=== PATIENT | female | born 1995 | race Caucasian/White ===

== ENCOUNTER → 2017-08-01 | Outpatient (CLI) | payer BC | END | disposition home or self-care (01) | LOC: LABWHC1 09:32 | PROVIDERS: ATTEND Otolaryngology | DX: J30.89 Other allergic rhinitis (principal) | CPT/HCPCS: 36415 ==

== ENCOUNTER → 2017-12-11 | Outpatient (CLI) | payer BC ==
--- NOTE | 2017-12-11 10:39 | US ---
EXAMINATION TYPE: US Transvaginal DATE OF EXAM: 12/11/2017 COMPARISON: NONE CLINICAL HISTORY: R10.9 Abdominal pain. Patient complains of LLQ pain, Nausea/ vomiting, and dizziness x 1 day TECHNIQUE: Transvaginal (TV). Transabdominal sonographic images of the pelvis were attempted. Patient could not fill bladder appropriately because she had nausea/vomiting. After giving her the option to fill bladder or do transvaginal exam, patient chose TV. Transvaginal sonographic images were medically necessary to better assess the following anatomy: Date of LMP: 11/24/17 EXAM MEASUREMENTS: Uterus: 7.5 x 3.5 2.5 cm Endometrial Stripe: 0.3 cm Right Ovary: 2.4 x 2.2 x 1.5 cm Left Ovary: 2.6 x 1.4 x 1.3 cm 1. Uterus: Anteverted 2. Endometrium: wnl 3. Right Ovary: wnl 4. Left Ovary: wnl, multiple follicles noted. Spectral, color and waveform doppler imaging shows good arterial and venous flow within the ovaries; 5. Bilateral Adnexa: wnl 6. Posterior cul-de-sac: very small amount of fluid noted. Hold & Call results given to JARETT Miller at time of exam. Heterogeneous anteverted uterus is seen. Tiny amount of free fluid is seen in pelvic cul-de-sac. Endometrial stripe is felt within normal limits. Both ovaries are seen with scattered peripheral follicles. No suspicious adnexal mass is present. IMPRESSION: No suspicious finding is seen to account for patient's symptoms. MTDD
[2017-12-11 10:50] LABS: Basophils % (A) 0 %; Eosinophils # (A) 0.2 k/uL (0-0.7); Eosinophils % (A) 2 %; HCT 39.5 % (34.0-46.0); Lymphocytes # (A) 0.7 k/uL (1.0-4.8); Lymphocytes % (A) 6 %; MCH 28.8 pg (25.0-35.0); MCV 87.5 fL (80.0-100.0); Mean Platelet Volume 9.4; Monocytes # (A) 0.5 k/uL (0-1.0); Monocytes % (A) 5 %; Neutrophils # (A) 10.2 k/uL (1.3-7.7); Neutrophils % (A) 87 %; Platelet Count 181 k/uL (150-450); RBC 4.51 m/uL (3.80-5.40); RDW 12.2 % (11.5-15.5); WBC 11.7 k/uL (3.8-10.6)
[2017-12-11 11:12] LABS: ALT 14 U/L (9-52); AST 20 U/L (14-36); Albumin 4.5 g/dL (3.5-5.0); Alkaline Phosphatase 53 U/L (38-126); Anion Gap 17 mmol/L; Blood Urea Nitrogen 15 mg/dL (7-17); Calcium 9.6 mg/dL (8.4-10.2); Carbon Dioxide 23 mmol/L (22-30); Chloride 102 mmol/L (98-107); Glucose 91 mg/dL (74-99); Potassium 4.4 mmol/L (3.5-5.1); Sodium 142 mmol/L (137-145); Total Bilirubin 0.5 mg/dL (0.2-1.3); Total Protein 7.3 g/dL (6.3-8.2)
[2017-12-11 11:29] LABS: T4, Free (Free Thyroxine) 0.95 ng/dL (0.78-2.19)
[2017-12-11 11:56] LABS: Erythrocyte Sedimentation Rate 7 mm/hr (0-20)
[2017-12-11 17:06] LABS: Iron Saturation 17.5 (12.00-45.00)
== END | disposition home or self-care (01) ==
LOC: RADUSWWP 09:31
PROVIDERS: ATTEND Family Medicine
DX: R10.9 Unspecified abdominal pain (principal); R55 Syncope and collapse
CPT/HCPCS: 36415; 76830; 76856; 80053; 83540; 83550; 84439; 84443; 85025; 85652

== ENCOUNTER → 2018-12-06 | Outpatient (CLI) | payer BC ==
[2018-12-06 16:23] LABS: HCT 37.8 % (34.0-46.0); HGB 12.3 gm/dL (11.4-16.0); MCH 28.4 pg (25.0-35.0); MCHC 32.6 g/dL (31.0-37.0); MCV 87.2 fL (80.0-100.0); Mean Platelet Volume 7.9; Platelet Count 261 k/uL (150-450); RBC 4.34 m/uL (3.80-5.40); RDW 13.1 % (11.5-15.5); WBC 6.9 k/uL (3.8-10.6)
[2018-12-06 23:09] LABS: Albumin 4.3 g/dL (3.80-4.90); Albumin/Globulin Ratio 2.15 (1.60-3.17); Anion Gap 6.4 mmol/L (4.00-12.00); Calcium 9.1 mg/dL (8.7-10.3); Carbon Dioxide 26.6 mmol/L (21.6-31.8); Potassium 4.2 mmol/L (3.5-5.5); Total Bilirubin 0.2 mg/dL (0.3-1.2); Total Protein 6.3 g/dL (6.2-8.2)
[2018-12-06 23:19] LABS: T4, Free (Free Thyroxine) 0.9 ng/dL (0.80-1.80)
== END | disposition home or self-care (01) ==
LOC: LABWHC1 15:37
PROVIDERS: ATTEND Internal Medicine Cardiovascular Disease
DX: R00.0 Tachycardia, unspecified (principal)
CPT/HCPCS: 36415; 80053; 84439; 84443; 85027

== ENCOUNTER → 2020-02-03 | Outpatient (CLI) | payer BC | END | disposition home or self-care (01) | LOC: LABWHC1 10:50 | PROVIDERS: ATTEND Otolaryngology | DX: J30.89 Other allergic rhinitis (principal) | CPT/HCPCS: 36415 ==

== ENCOUNTER → 2021-09-15 | Outpatient (CLI) | payer BC ==
--- NOTE | 2021-09-15 16:16 | CT ---
EXAMINATION TYPE: CT soft tissue neck w con DATE OF EXAM: 09/15/2021 COMPARISON: None HISTORY: 25-year-old female R22.1, lump to right side of neck TECHNIQUE: Contiguous axial scanning of the soft tissues of the neck performed with IV Contrast, sarah ent injected with 100 mL of Isovue 300. Coronal/sagittal reconstructions performed. CT DLP: 408.2 mGycm Automated exposure control for dose reduction was used. FINDINGS: The thyroid and submandibular glands are satisfactory. Mildly atrophic bilateral parotid glands. Visualized intracranial structures, orbits and globes, paranasal sinuses, and mastoid air cells appea r clear. Nasopharynx appears clear. Mild bilateral palatine tonsillar hypertrophy. Mild lingual tonsillar hypertrophy, particularly on the left extending into the vallecular space. Epiglottis and prevertebral soft tissues are satisfactory. Glottic and subglottic struck as well as the tracheal column and visualized upper lungs are clear. Variant direct takeoff of the left vertebral artery directly from the aortic arch. A palpable marker placed along the right anterior upper neck. Directly underlying the palpable marker is the sternocleidomastoid muscle and the external jugular vein coursing over the muscle. No underly ing lymphadenopathy or suspicious masses identified. IMPRESSION: 1. Unremarkable marker placed along the right anterior upper neck. The sternocleidomastoid muscle und erlies the palpable marker with the external jugular vein coursing over the muscle. No suspicious mas s or lymphadenopathy here or elsewhere in the neck. 2. The area can be followed clinically. If any enlarging palpable abnormality, targeted ultrasound ca n be performed.
== END | disposition home or self-care (01) ==
LOC: RADCTMAIN 15:28
PROVIDERS: ATTEND Otolaryngology
DX: R22.1 Localized swelling, mass and lump, neck (principal)
CPT/HCPCS: 70491; Q9967

== ENCOUNTER 2022-01-26 22:22 | Emergency (ER) | payer BC ==
[2022-01-27 00:33] VITALS: BP 114/80; PULSE 90; RESP 18; TEMP 98.5
--- NOTE | 2022-01-27 01:44 | ED ---
Abdominal Pain HPI - General Chief Complaint: Abdominal Pain Stated Complaint: right side pain, 14 wks preg Time Seen by Provider: 01/27/22 01:43 Source: patient, RN notes reviewed, old records reviewed Mode of arrival: ambulatory - History of Present Illness Initial Comments: This is a 26-year-old female presented today for evaluation of abdominal pain patient wishes about 12-14 weeks . No nausea no vomiting no fevers. No dysuria no bowel movement issues. Patient has no travel history or sick contacts takes no medications. MD Complaint: abdominal pain -: hour(s) Location: RUQ, RLQ Radiation: R flank Migration to: suprapubic Severity: moderate Severity scale (1-10): 4 Quality: fullness Consistency: constant Improves With: nothing Worsens With: nothing Associated Symptoms: nausea Treatments Prior to Arrival: other (none) Review of Systems ROS Statement: Those systems with pertinent positive or pertinent negative responses have been documented in the HPI. ROS Other: All systems not noted in ROS Statement are negative. Past Medical History Past Medical History: Asthma Additional Past Medical History / Comment(s): miscarigases 03/27 07/27, hx of tachycardia, History of Any Multi-Drug Resistant Organisms: None Reported Additional Past Surgical History / Comment(s): D&C, cyst removal L hand Lfoot, wisdom teeth Past Psychological History: No Psychological Hx Reported Smoking Status: Never smoker Past Alcohol Use History: Rare Past Drug Use History: None Reported General Exam General appearance: alert, in no apparent distress, anxious Head exam: Present: atraumatic, normocephalic, normal inspection Eye exam: Present: normal appearance, PERRL, EOMI. Absent: scleral icterus, conjunctival injection, periorbital swelling ENT exam: Present: normal exam, mucous membranes moist Neck exam: Present: normal inspection. Absent: tenderness, meningismus, lymphadenopathy Respiratory exam: Present: normal lung sounds bilaterally. Absent: respiratory distress, wheezes, rales, rhonchi, stridor Cardiovascular Exam: Present: regular rate, normal rhythm, normal heart sounds. Absent: systolic murmur, diastolic murmur, rubs, gallop, clicks GI/Abdominal exam: Present: soft, normal bowel sounds. Absent: distended, tenderness, guarding, rebound, rigid Extremities exam: Present: normal inspection, full ROM, normal capillary refill. Absent: tenderness, pedal edema, joint swelling, calf tenderness Back exam: Present: normal inspection Neurological exam: Present: alert, oriented X3, CN II-XII intact Psychiatric exam: Present: normal affect, normal mood Skin exam: Present: warm, dry, intact, normal color. Absent: rash Course Vital Signs 01/27/22 00:26 Temperature 98.5 F Pulse Rate 90 Respiratory 18 Rate Blood Pressure 114/80 O2 Sat by Pulse 98 Oximetry - Reevaluation(s) Reevaluation #1: 01/27/22 Medical record is reviewed Reevaluation #2: 01/27/22 Patient informed results and questions answered Reevaluation #3: 01/27/22 Patient is without significant complaint Medical Decision Making - Medical Decision Making 26 female to the emergency department for evaluation. Patient presents today for evaluation regards to abdominal pain and positive IUP here in the emergency for her. Patient can be discharged home - Lab Data Lab Results 01/27/22 Range/Units 02:25 Urine Color Yellow Urine Appearance Cloudy H (Clear) Urine pH 5.5 (5.0-8.0) Ur Specific [place] 1.029 (1.001-1.035) Urine Protein Trace H (Negative) Urine Glucose (UA) Negative (Negative) Urine Ketones Trace H (Negative) Urine Blood Negative (Negative) Urine Nitrite Negative (Negative) Urine Bilirubin Negative (Negative) Urine Urobilinogen <2.0 (<2.0) mg/dL Ur Leukocyte Esterase Small H (Negative) Urine RBC 1 (0-5) /hpf Urine WBC 6 H (0-5) /hpf Ur Squamous Epith Cells 27 H (0-4) /hpf Uric Acid Crystals Few H (None) /hpf Urine Bacteria Rare H (None) /hpf Urine Mucus Few H (None) /hpf - Radiology Data Radiology results: report reviewed (Ultrasound shows positive IUP), image reviewed Disposition Clinical Impression: Abdominal pain Disposition: HOME SELF-CARE Condition: Good Instructions (If sedation given, give patient instructions): Abdominal Pain in (ED) Is patient prescribed a controlled substance at d/c from ED?: No Referrals: Roly Jose MD [REFERRING] - 1-2 days Time of Disposition: 02:40
--- NOTE | 2022-01-27 02:27 | US ---
EXAMINATION TYPE: US OB >= 14 wk fetus DATE OF EXAM: 01/27/2022 COMPARISON: None CLINICAL HISTORY: Right flank pain TECHNIQUE: Transabdominal (TA) GESTATIONAL AGE / DATING Physician Established: (14 weeks/4 days) EDC: 07/24/22 Dates by First Scan: No previous this is first scan here Dates by Current Scan: (14 weeks/3 days) EDC: 07/25/22 SURVEY IUP: Single PLACENTA: Anterior PREVIA: No Previa CERVICAL LENGTH (transabdominal: norm > 3.0cm): 3.08 cm BIOMETRY PRESENTATION: Variable BPD: 2.51 cm 14 weeks / 3 days HC: 9.72 cm 14 weeks / 4 days AC: 8.21 cm 14 weeks / 4 days FL: 1.38 cm 14 weeks / 1 days ESTIMATED WEIGHT IN GRAMS: 95 grams ESTIMATED WEIGHT IN LBS/OZ: 0 lbs. 3 oz. WEIGHT PERCENTAGE BASED ON ESTABLISHED DATES: 21% HC/AC: 1.18 Normal FL/AC: 17% Normal HEART RATE: 161 bpm RHYTHM: Normal IMPRESSION: The ultrasound gestational age is 14 weeks and 3 days. No complicating process seen.
[2022-01-27 03:14] LABS: Appearance,Urine Cloudy (Clear); Bacteria,Urine Rare /hpf; Bilirubin,Urine Negative (Negative); Blood,Urine Negative (Negative); Color,Urine Yellow; Glucose,Urine (UA) Negative (Negative); Ketones,Urine Trace (Negative); Leukocyte Esterase,Urine Small (Negative); Mucus,Urine Few /hpf; Nitrite,Urine Negative (Negative); PH, Urine 5.5 (5.0-8.0); Protein,Urine Trace (Negative); RBC,Urine 1 /hpf (0-5); Specific Gravity,Urine 1.029 (1.001-1.035); Squamous Epithelial Cell,Urine 27 /hpf (0-4); Uric Acid Crystals,Urine Few /hpf; Urobilinogen,Urine <2.0 mg/dL (<2.0); WBC,Urine 6 /hpf (0-5)
== END 2022-01-27 03:16 | disposition home or self-care (01) ==
LOC: EC 22:22
DX: O99.611 Diseases of the digestive system complicating pregnancy, first trimester (principal); J45.909 Unspecified asthma, uncomplicated; Z3A.14 14 weeks gestation of pregnancy
CPT/HCPCS: 76805; 81001

== ENCOUNTER 2022-06-07 18:45 | Outpatient (CLI) | payer BC ==
[2022-06-07 19:46] VITALS: BP 123/81; PULSE 113; RESP 16; TEMP 98.3
--- NOTE | 2022-06-25 10:41 | P.MSEPDOC ---
Presenting Problems - Arrival Data Date of Arrival on Unit: 06/07/22 Time of Arrival on Unit: 18:45 Mode of Transport: Ambulatory - Complaint OB-Reason for Admission/Chief Complaint: Decreased Movement Medical History - Information : 3 Para: 0 - Gestational Age Gestational Age by PAMELA (wks/days): 33 Weeks and 2 Days Review of Systems - Review of Systems Constitutional: No problems Breast: No problems ENT: No problems Cardiovascular: No problems Respiratory: No problems Gastrointestinal: No problems Genitourinary: No problems Musculoskeletal: No problems Neurological: No problems Skin: No problems Vital Signs - Temperature Temperature: 98.3 F Temperature Source: Temporal Artery Scan - Pulse Pulse Oximetery Pulse Rate: 113 Pulse Assessment Method: Pulse Oximetry - Respirations Respiratory Rate: 16 Oxygen Delivery Method: Room Air O2 Sat by Pulse Oximetry: 96 - Blood Pressure Right Arm Blood Pressure: 123/81 Blood Pressure Mean: 95 Blood Pressure Source: Automatic Cuff Medical Screen Scoring - Assessment - Baby A Baseline FHR: 125 Heart Rate - NICHD Category: Category I (Normal) Maternal Triage Index - Stat/Priority 1 Stat Priority 1: No - Urgent/Priority 2 Urgent Priority 2: Yes Provider Notified: Baldo Ng Provider Notified Time: 19:21 Criteria Met for Priority 2: Patient presents to triage for decreased movement Disposition - Disposition OB Disposition: Discharge to home I agree with the RN Medical Screening Exam: Yes Physician's MSE Comment: I have neither seen nor examined the patient. Case reviewed; plan agreed upon as documented in EMR&OBIX.: Yes Diagnosis: RELATED CONDITIONS, UNSPECIFIED, THIRD TRIMESTER
== END 2022-06-07 19:47 | disposition home or self-care (01) ==
LOC: FBPOP 18:45
PROVIDERS: ATTEND Obstetrics & Gynecology
DX: O26.893 Other specified pregnancy related conditions, third trimester (principal); Z3A.33 33 weeks gestation of pregnancy; O36.8130 Decreased fetal movements, third trimester, not applicable or unspecified; Z91.041 Radiographic dye allergy status; Z91.013 Allergy to seafood
CPT/HCPCS: 59025; 99213

== ENCOUNTER 2022-06-12 21:11 | Emergency (ER) | payer BC ==
[2022-06-12 21:16] VITALS: TEMP 98.2
--- NOTE | 2022-06-12 21:47 | ED ---
Chest Pain HPI - General Chief Complaint: Chest Pain Stated Complaint: Chest pain-34 weeks preg Time Seen by Provider: 06/12/22 21:19 Source: patient, RN notes reviewed, old records reviewed Mode of arrival: wheelchair Limitations: no limitations - History of Present Illness Initial Comments: This is a 26-year-old female to the emergency department for evaluation. Patient presents is a 34 weeks' . Patient is having some chest pain some back pain and elevated heart rate some lightheadedness and episode of vomiting earlier today not consistently short of breath does suffer from asthma admits may be a difficult time taking a deep breath. Patient is without fever or known sick contacts. No significant medical history otherwise MD Complaint: chest pain -: days(s) Onset: during rest, during exertion Pain Location: substernal Pain Radiation: none Severity: moderate Severity scale (1-10): 4 Quality: tightness Consistency: constant Improves With: nothing Worsens With: nothing Anginal Symptoms: dyspnea Other Symptoms: palpitations Treatments Prior to Arrival: none - Related Data Allergies Allergy/AdvReac Type Severity Reaction Status Date / Time iodine Allergy Rash/Hives Verified 06/07/22 19:05 shellfish derived [Shellfish] Allergy Rash/Hives Verified 06/12/22 21:16 Review of Systems ROS Statement: Those systems with pertinent positive or pertinent negative responses have been documented in the HPI. ROS Other: All systems not noted in ROS Statement are negative. EKG Findings - EKG Comments: EKG Findings:: EKG interpreted by me sinus tachycardia 110 AL 126 QRS 73 QTC 377 Past Medical History Past Medical History: Asthma Additional Past Medical History / Comment(s): miscarigases 03/27 07/27, hx of tachycardia, History of Any Multi-Drug Resistant Organisms: None Reported Additional Past Surgical History / Comment(s): D&C, cyst removal L hand Lfoot, wisdom teeth Past Psychological History: No Psychological Hx Reported Smoking Status: Never smoker Past Alcohol Use History: None Reported Past Drug Use History: None Reported General Exam Limitations: no limitations General appearance: alert, in no apparent distress, anxious Head exam: Present: atraumatic, normocephalic, normal inspection Eye exam: Present: normal appearance, PERRL, EOMI. Absent: scleral icterus, conjunctival injection, periorbital swelling ENT exam: Present: normal exam, mucous membranes moist Neck exam: Present: normal inspection. Absent: tenderness, meningismus, lymphadenopathy Respiratory exam: Present: normal lung sounds bilaterally. Absent: respiratory distress, wheezes, rales, rhonchi, stridor Cardiovascular Exam: Present: normal rhythm, tachycardia, normal heart sounds. Absent: systolic murmur, diastolic murmur, rubs, gallop, clicks GI/Abdominal exam: Present: soft, normal bowel sounds. Absent: distended, tenderness, guarding, rebound, rigid Extremities exam: Present: normal inspection, full ROM, normal capillary refill. Absent: tenderness, pedal edema, joint swelling, calf tenderness Back exam: Present: normal inspection Neurological exam: Present: alert, oriented X3, CN II-XII intact Psychiatric exam: Present: normal affect, normal mood Skin exam: Present: warm, dry, intact, normal color. Absent: rash Course Vital Signs 06/12/22 06/12/22 06/12/22 21:13 23:20 23:25 Temperature 98.2 F Pulse Rate 126 H 101 H 108 H Respiratory 20 Rate Blood Pressure 112/70 O2 Sat by Pulse 97 Oximetry 06/12/22 23:49 Temperature Pulse Rate 116 H Respiratory 18 Rate Blood Pressure 110/79 O2 Sat by Pulse 99 Oximetry - Reevaluation(s) Reevaluation #1: 06/12/22 23:38 Medical records reviewed Reevaluation #2: 06/12/22 23:38 Patient feeling currently improved - Consultations Consultation #1: Did speak with patient's OB kind who will see patient on OB floor Chest Pain MDM - MDM 26 female to the emergency department for evaluation chest pain abdominal pain. He is negative x-ray, mild sludge on gallbladder ultrasound mild hydronephrosis right-sided. Patient has no other acute findings can be discharged home, d- dimer just referred third trimester is within normal limits Disposition Clinical Impression: Atypical chest pain, Chest pain, Abdominal pain Disposition: HOME SELF-CARE Instructions (If sedation given, give patient instructions): Abdominal Pain in (ED) Is patient prescribed a controlled substance at d/c from ED?: No Referrals: Marcel Tejeda MD [Medical Doctor] - 1-2 days Time of Disposition: 01:00
[2022-06-12] MEDS ORDERED: ACETAMINOPHEN IV (For NPO) 1,000 MG in EMPTY BAG 1 BAG IVPB STA (21:57)
[2022-06-12] MEDS ORDERED: SODIUM CHLORIDE 0.9% 500 ML 500 ML IV STA (21:57)
[2022-06-12] MEDS ORDERED: SODIUM CHLORIDE 0.9% 1,000 ML IV STA ×3 (21:57→23:02)
--- NOTE | 2022-06-12 22:26 | XR ---
EXAMINATION TYPE: XR chest 1V portable DATE OF EXAM: 06/12/2022 COMPARISON: NONE HISTORY: Chest pain TECHNIQUE: 2 views FINDINGS: Heart and mediastinum are normal. Lungs are clear. Diaphragm is normal. Bony thorax is inta ct. There are chest leads. IMPRESSION: Normal chest.
[2022-06-12 22:40] LABS: Basophils % (A) 0 %; Eosinophils # (A) 0.1 k/uL (0-0.7); Eosinophils % (A) 1 %; HCT 29.8 % (34.0-46.0); HGB 10.3 gm/dL (11.4-16.0); Lymphocytes # (A) 1.5 k/uL (1.0-4.8); Lymphocytes % (A) 13 %; MCHC 34.4 g/dL (31.0-37.0); MCV 84.1 fL (80.0-100.0); Mean Platelet Volume 10.9; Monocytes # (A) 0.7 k/uL (0-1.0); Monocytes % (A) 6 %; Neutrophils # (A) 9.2 k/uL (1.3-7.7); Neutrophils % (A) 79 %; Platelet Count 172 k/uL (150-450); RBC 3.55 m/uL (3.80-5.40); RDW 12.9 % (11.5-15.5); WBC 11.7 k/uL (3.8-10.6)
[2022-06-12 22:42] LABS: Appearance,Urine Clear (Clear); Bilirubin,Urine Negative (Negative); Blood,Urine Negative (Negative); Color,Urine Colorless; Glucose,Urine (UA) Negative (Negative); Ketones,Urine Negative (Negative); Leukocyte Esterase,Urine Negative (Negative); Nitrite,Urine Negative (Negative); Protein,Urine Negative (Negative); Specific Gravity,Urine 1.005 (1.001-1.035); Urobilinogen,Urine <2.0 mg/dL (<2.0)
[2022-06-12 22:49] LABS: INR 0.9 (<1.2); Partial Thromboplastin Time 22.3 sec (22.0-30.0)
[2022-06-12 22:50] LABS: ALT 10 U/L (4-34); AST 15 U/L (14-36); African American GFR (CKD) >90 (>60 ml/min/1.73 sqM); Albumin 3.5 g/dL (3.5-5.0); Alkaline Phosphatase 121 U/L (38-126); Anion Gap 7 mmol/L; Blood Urea Nitrogen 7 mg/dL (7-17); Calcium 8.7 mg/dL (8.4-10.2); Carbon Dioxide 21 mmol/L (22-30); Chloride 106 mmol/L (98-107); Glucose 90 mg/dL (74-99); Magnesium 1.8 mg/dL (1.6-2.3); Non-African American GFR(CKD) >90 (>60 ml/min/1.73 sqM); Phosphorus 4.1 mg/dL (2.5-4.5); Potassium 3.8 mmol/L (3.5-5.1); Sodium 134 mmol/L (137-145); Total Bilirubin 0.3 mg/dL (0.2-1.3); Total Protein 6.2 g/dL (6.3-8.2)
[2022-06-12] MEDS ORDERED: ALBUTEROL NEBULIZED 2.5 MG/3 ML INHALATION STA (23:02)
[2022-06-12 23:50] VITALS: BP 110/79; PULSE 116; RESP 18
[2022-06-12] MEDS ORDERED: diphenhydrAMINE 50 MG/ML 1 ML VIAL IVP STA (23:51)
--- NOTE | 2022-06-13 00:48 | US ---
EXAMINATION TYPE: US gallbladder DATE OF EXAM: 06/13/2022 COMPARISON: NONE CLINICAL HISTORY: pain. TECHNIQUE: Multiple sonographic images of the right upper quadrant are obtained. FINDINGS: EXAM MEASUREMENTS: Liver Length: 13.7 Gallbladder Wall: 0.3m CBD: 0.3 cm Right Kidney: 10.1 x 3.7 x 4.5cm [employer] AIDE NOTES: Extensive overlying bowel gas, technically difficult study. Pancreas: Obscured by bowel gas Liver: limited views, appears wnl as seen Gallbladder: sludge Evidence for sonographic Quiros's sign: No CBD: wnl Right Kidney: mild hydro IMPRESSION: There is echogenic bile. No gallstones. No dilated ducts. There is enlargement of the right renal pel vis. There is right-sided hydronephrosis but no renal atrophy.
== END 2022-06-13 01:57 | disposition home or self-care (01) ==
LOC: EC 21:11
DX: O26.893 Other specified pregnancy related conditions, third trimester (principal); R07.89 Other chest pain; R10.9 Unspecified abdominal pain; J45.909 Unspecified asthma, uncomplicated; Z3A.34 34 weeks gestation of pregnancy; Z91.041 Radiographic dye allergy status; Z91.013 Allergy to seafood
CPT/HCPCS: 99285; 96365 ×2; 96375 ×2; 96361 ×5; 99284; 36415; 94640; 93005; 85379; 80053; 83690; 83735; 84100; 84484; 85025; 85610; 85730; 81003; 71045; 76705; J1200; J0131

== ENCOUNTER 2022-06-13 01:36 | Outpatient (CLI) | payer BC ==
[2022-06-13 03:26] VITALS: BP 100/59; PULSE 99; RESP 18; TEMP 97.9
--- NOTE | 2022-06-14 08:17 | P.MSEPDOC ---
Presenting Problems - Arrival Data Date of Arrival on Unit: 06/13/22 Time of Arrival on Unit: 01:36 Mode of Transport: Wheelchair - Complaint OB-Reason for Admission/Chief Complaint: Pain Comment: Patient c/o back pain and pelvic pain, Seen in ER before L&D triage for shortness of breath and chest pain. PE ruled out, no acute processes seen on CXR. Patient deemed stable for transfer up to L&D for r/o labor and NST. Medical History - Information : 3 Para: 0 Term: 0 : 0 Abortions: Spontaneous or Elective: 2 Number of Living Children: 0 - Gestational Age Gestational Age by PAMELA (wks/days): 34 Weeks and 1 Days Review of Systems - Review of Systems Constitutional: No problems Breast: No problems ENT: No problems Cardiovascular: No problems Respiratory: No problems Gastrointestinal: No problems Genitourinary: No problems Musculoskeletal: No problems Neurological: No problems Skin: No problems Comment: Initial complaints of SOB and chest pain that brought her to be checked are no longer an issue when in triage. Vital Signs - Temperature Temperature: 97.9 F Temperature Source: Temporal Artery Scan - Pulse Pulse Oximetery Pulse Rate: 99 Pulse Assessment Method: Automatic Cuff - Respirations Respiratory Rate: 18 Oxygen Delivery Method: Room Air O2 Sat by Pulse Oximetry: 98 - Blood Pressure Right Arm Blood Pressure: 100/59 Blood Pressure Mean: 72 Blood Pressure Source: Automatic Cuff Medical Screen Scoring - Cervical Exam Dilation (cm): 0 Effacement (%): 50 Station: -2 Membranes: Intact - Uterine Contractions Intensity: Absent Resting: Soft to palpation - Assessment - Baby A Baseline FHR: 125 Heart Rate - NICHD Category: Category I (Normal) NST: Reactive Physician Notification - Physician Notified Physician Notified Date: 06/13/22 Physician Notified Time: 02:25 Physician: Marian Schmidt Order Received: Yes - Notification Comment Comment: Dr. Schmidt on unit. Discussed orders to begin NST and perform cervical exam. Call with results. Maternal Triage Index - Maternal Triage Index Presenting for scheduled procedure w/no complaint: No - Stat/Priority 1 Stat Priority 1: No - Urgent/Priority 2 Urgent Priority 2: No - Prompt/Priority 3 Prompt Priority 3: Yes Criteria Met for Priority 3: >34 weeks. Back and pelvic pain. - Non-Urgent/Priority 4 Non-Urgent Priority 4: No - Scheduled/Requesting Priority 5 Scheduled/Requesting Priority 5: No Disposition - Disposition OB Disposition: Discharge to home, Written follow up instructions reviewed Discharge Date: 06/13/22 Discharge Time: 03:08 I agree with the RN Medical Screening Exam: Yes Physician's MSE Comment: I have neither seen nor examined the patient. Case reviewed; plan agreed upon as documented in EMR&OBIX.: Yes Diagnosis: RELATED CONDITIONS, UNSPECIFIED, THIRD TRIMESTER
== END 2022-06-13 03:08 | disposition home or self-care (01) ==
LOC: FBPOP 01:36
PROVIDERS: ATTEND Obstetrics & Gynecology
DX: O26.93 Pregnancy related conditions, unspecified, third trimester (principal); Z91.048 Other nonmedicinal substance allergy status; Z91.013 Allergy to seafood; Z3A.34 34 weeks gestation of pregnancy
CPT/HCPCS: 59025; 99213

== ENCOUNTER 2022-07-18 17:06 | Outpatient (CLI) | payer BC ==
[2022-07-18 18:36] VITALS: BP 112/81; PULSE 121; RESP 16; TEMP 98.2
--- NOTE | 2022-08-28 10:09 | P.MSEPDOC ---
Presenting Problems - Arrival Data Date of Arrival on Unit: 07/18/22 Time of Arrival on Unit: 17:06 Mode of Transport: Ambulatory - Complaint OB-Reason for Admission/Chief Complaint: Rule Out PROM Medical History - Information : 3 Para: 0 Term: 0 : 0 Abortions: Spontaneous or Elective: 3 Number of Living Children: 0 - Gestational Age Gestational Age by PAMELA (wks/days): 39 Weeks and 1 Days Review of Systems - Review of Systems Constitutional: No problems Breast: No problems ENT: No problems Cardiovascular: No problems Respiratory: No problems Gastrointestinal: No problems Genitourinary: No problems Musculoskeletal: No problems Neurological: No problems Skin: No problems Vital Signs - Temperature Temperature: 98.2 F Temperature Source: Temporal Artery Scan - Pulse Pulse Oximetery Pulse Rate: 121 Pulse Assessment Method: Pulse Oximetry - Respirations Respiratory Rate: 16 Oxygen Delivery Method: Room Air O2 Sat by Pulse Oximetry: 97 - Blood Pressure Right Arm Blood Pressure: 112/81 Blood Pressure Mean: 91 Blood Pressure Source: Automatic Cuff Medical Screen Scoring - Assessment - Baby A Baseline FHR: 125 Heart Rate - NICHD Category: Category I (Normal) NST: Reactive Physician Notification - Physician Notified Physician Notified Date: 07/18/22 Physician Notified Time: 18:12 Physician: Marian Schmidt Order Received: No Maternal Triage Index - Non-Urgent/Priority 4 Non-Urgent Priority 4: Yes Criteria Met for Priority 4: complaints of gush of clear fluid Disposition - Disposition OB Disposition: Triage, Discharge to home, Written follow up instructions reviewed I agree with the RN Medical Screening Exam: Yes Physician's MSE Comment: I have neither seen nor examined the patient Case reviewed; plan agreed upon as documented in EMR&OBIX.: Yes Diagnosis: RELATED CONDITIONS, UNSPECIFIED, THIRD TRIMESTER
== END 2022-07-18 18:30 | disposition home or self-care (01) ==
LOC: FBPOP 17:06
PROVIDERS: ATTEND Obstetrics & Gynecology
DX: O26.93 Pregnancy related conditions, unspecified, third trimester (principal); Z3A.39 39 weeks gestation of pregnancy; Z91.041 Radiographic dye allergy status; Z91.013 Allergy to seafood; Z91.040 Latex allergy status
CPT/HCPCS: 59025; 84112; 99213

== ENCOUNTER 2022-07-22 05:55 | Inpatient (IN) | payer BC ==
[2022-07-22] MEDS: LACTATED RINGERS 1,000 ML IV SCH ×2 (06:22→11:57)
[2022-07-22 07:34] LABS: Basophils % (A) 0 %; Eosinophils # (A) 0.1 k/uL (0-0.7); Eosinophils % (A) 1 %; HCT 29.7 % (34.0-46.0); HGB 10.3 gm/dL (11.4-16.0); Lymphocytes # (A) 1.6 k/uL (1.0-4.8); Lymphocytes % (A) 15 %; MCH 28.7 pg (25.0-35.0); MCHC 34.7 g/dL (31.0-37.0); MCV 82.7 fL (80.0-100.0); Mean Platelet Volume 11.8; Monocytes # (A) 0.7 k/uL (0-1.0); Monocytes % (A) 6 %; Neutrophils # (A) 8.3 k/uL (1.3-7.7); Neutrophils % (A) 76 %; Platelet Count 184 k/uL (150-450); RBC 3.59 m/uL (3.80-5.40); RDW 13.4 % (11.5-15.5); WBC 10.8 k/uL (3.8-10.6)
[2022-07-22] MEDS ORDERED: LIDOCAINE 0.5% (PF) 5 MG/ML (50 ML SDV) SQ PRN (08:07)
[2022-07-22] MEDS ORDERED: TERBUTALINE 1 MG/ML VIAL SQ PRN (08:07)
[2022-07-22] MEDS ORDERED: BUTORPHANOL 1 MG/ML 1 ML VIAL IM PRN (08:10)
[2022-07-22] MEDS ORDERED: OXYTOCIN 30 UNITS/500 ML NS 30 UNIT in SALINE 1 500ML.BAG IV SCH ×2 (08:15→20:30)
--- NOTE | 2022-07-22 08:19 | P.HPOB ---
History of Present Illness H&P Date: 07/22/22 Chief Complaint: Elective induction of labor 26 y/o at 39 weeks, 5 with EDC of 07/24/2022 who presents for elective induction of labor. has been uncomplicated. Obstetric history is significant for 2 early SABs, both requiring D&C. Laboratory workup showed GBS negative, 1 hr GTT 73, RPR non-reactive, HBsAG negative, HIV non-reactive, rubella immune. Past Medical History Past Medical History: Asthma Additional Past Medical History / Comment(s): miscarrages 03/27 07/27, hx of tachycardia, History of Any Multi-Drug Resistant Organisms: None Reported Additional Past Surgical History / Comment(s): D&C, cyst removal L hand Lfoot, wisdom teeth Past Anesthesia/Blood Transfusion Reactions: No Reported Reaction Past Psychological History: No Psychological Hx Reported Smoking Status: Never smoker Past Alcohol Use History: None Reported Past Drug Use History: None Reported - Past Family History Father Family Medical History: Diabetes Mellitus, Hypertension Mother Family Medical History: Thyroid Disorder Medications and Allergies Home Medications Medication Instructions Recorded Confirmed Type Aspirin [[place]] 162 mg PO DAILY 06/13/22 07/22/22 History Cetirizine HCl [Zyrtec] 10 mg PO DAILY 06/13/22 07/22/22 History Folic Acid 1 mg PO DAILY 06/13/22 07/22/22 History Montelukast [Singulair] 10 mg PO DAILY 06/13/22 07/22/22 History Omeprazole [PriLOSEC] 10 mg PO DAILY 06/13/22 07/22/22 History Allergies Allergy/AdvReac Type Severity Reaction Status Date / Time iodine Allergy Rash/Hives Verified 07/22/22 07:27 shellfish derived [Shellfish] Allergy Rash/Hives Verified 07/22/22 07:27 latex AdvReac Rash/Hives Verified 07/22/22 07:28 Exam Vital Signs Temp Pulse Resp BP Pulse Ox 07/22/22 07:19 96.9 F L 114 H 17 114/74 96 Intake and Output 07/21/22 07/22/22 07/22/22 22:59 06:59 14:59 Other: Weight 87.997 kg Focused exam is performed. Healthy-appearing in no apparent distress. Cervical exam shows cervix is 1cm dilated, thick, and high. Cooks catheter balloon is inserted through the cervix with 60cc in each balloon. Patient tolerated the procedure well. Results Result Diagrams: 07/22/22 06:25 Abnormal Lab Results - Last 24 Hours (Table) 07/22/22 Range/Units 06:25 WBC 10.8 H (3.8-10.6) k/uL RBC 3.59 L (3.80-5.40) m/uL Hgb 10.3 L (11.4-16.0) gm/dL Hct 29.7 L (34.0-46.0) % Neutrophils # 8.3 H (1.3-7.7) k/uL Assessment and Plan Assessment: 26 y/o at 39w5d here for eIOL Plan: - cooks catheter placed at 800 with 60cc in each balloon. Begin low-dose oxytocin with maximum of 6 until cooks catheter is removed. IV stadol prn while cooks catheter is in place. Plan to remove catheter in 6-12 hours. NPO, mIVF. Continunous EFM. Time with Patient: Greater than 30
[2022-07-22] MEDS: BUTORPHANOL 1 MG/ML 1 ML VIAL IV PRN ×2 (17:32→18:10)
[2022-07-22] MEDS ORDERED: diphenhydrAMINE 50 MG CAP PO PRN (20:28)
[2022-07-22] MEDS ORDERED: diphenhydrAMINE 25 MG CAP PO PRN (20:28)
[2022-07-22] MEDS ORDERED: LANOLIN CREAM 5 GM TUBE TOPICAL PRN (20:28)
[2022-07-22] MEDS ORDERED: SIMETHICONE 80 MG CHEWABLE PO PRN (20:28)
[2022-07-22] MEDS ORDERED: ZOLPIDEM 5 MG TAB PO PRN (20:28)
[2022-07-22] MEDS ORDERED: diphenhydrAMINE 50 MG/ML 1 ML VIAL IVP PRN ×2 (20:28)
[2022-07-22] MEDS ORDERED: BENZOCAINE/MENTHOL SPRAY 1 GM/SPRAY AEROSOL TOPICAL PRN (20:28)
[2022-07-22] MEDS ORDERED: HYDROCORTISONE 2.5% RECTAL CREAM 30 GM TUBE RECTAL PRN (20:28)
--- NOTE | 2022-07-22 20:34 | P.PROBDLV ---
Vaginal Delivery Note - . Vaginal Delivery Note: PROCEDURE: Normal Vaginal Delivery ATTENDING: Dr. Marian Schmidt MD ESTIMATED BLOOD LOSS: 200mL FINDINGS: VFI, Apgars 7/8 PROCEDURE: Patient was a 26 y/o at 39 weeks and 5 days who presented to labor and delivery for elective induction of labor. The patient progressed through the first stage of labor quickly. Patient was complete and pushing. Head delivered without difficulty followed by shoulders and body over intact perineum. Infant placed on maternal abdomen and bulb suctioned. Cord was clamped and cut. Placenta delivered whole with gentle cord traction. Oxytocin was started to facilitate uterine tone. Uterine fundus firm and bleeding minimal upo n fundal massage. Perineal inspection revealed second degree laceration requiring repair and hemostatic periurethral abrasions. The second degree laceration was repaired with 3-0 Vicryl in the usual fashion. Patient stable .
[2022-07-23] MEDS: LACTATED RINGERS 1,000 ML IV SCH (06:57)
[2022-07-23 07:26] LABS: Basophils % (A) 0 %; Eosinophils % (A) 0 %; HCT 25.8 % (34.0-46.0); Lymphocytes # (A) 1.3 k/uL (1.0-4.8); Lymphocytes % (A) 9 %; MCH 28.2 pg (25.0-35.0); MCHC 34.1 g/dL (31.0-37.0); MCV 82.9 fL (80.0-100.0); Mean Platelet Volume 11.4; Monocytes # (A) 0.6 k/uL (0-1.0); Monocytes % (A) 4 %; Neutrophils # (A) 12.8 k/uL (1.3-7.7); Neutrophils % (A) 85 %; Platelet Count 187 k/uL (150-450); RBC 3.11 m/uL (3.80-5.40); WBC 15.1 k/uL (3.8-10.6)
[2022-07-23 07:35] LABS: HGB 8.8 gm/dL (11.4-16.0)
[2022-07-23] MEDS: IBUPROFEN 600 MG TAB PO PRN ×2 (07:45→13:36)
[2022-07-23] MEDS ORDERED: SENNOSIDES-DOCUSATE SODIUM 1 EACH TAB PO SCH (08:00)
--- NOTE | 2022-07-23 08:13 | P.PNOBGVD ---
Subjective - Subjective Principal diagnosis: Normal Vaginal Delivery Interval history: The patient is doing well this morning and had no acute events overnight. She states she is sore in her pelvis and legs with ambulation. She reports moderate lochia, passing flatus, voiding without difficulty, and eating/drinking without nausea or vomiting. She is formula feeding her , who is doing well at the bedside. She denies chest pain, shortness of breathing, fevers, or chills overnight. She denies pain or swelling in the legs. Patient reports: Reports appetite normal, Reports voiding normally, Reports pain well controlled, Reports other (pain with ambulation) : doing well, other (formula feeding) Objective - Latest Vital Signs Latest vital signs: Vital Signs Temp Pulse Resp BP Pulse Ox 07/23/22 08:00 97.6 F 85 16 100/71 07/23/22 04:00 97.7 F 95 16 99/67 97 07/23/22 00:00 97.3 F L 114 H 16 111/65 99 07/22/22 22:10 112 H 16 104/66 07/22/22 21:40 121 H 16 119/66 07/22/22 21:10 112 H 16 102/62 07/22/22 20:55 112 H 16 106/63 07/22/22 20:40 89 16 109/64 07/22/22 20:25 96.6 F L 110 H 16 112/71 07/22/22 20:10 102 H 18 109/60 Intake and Output 07/22/22 07/23/22 07/23/22 22:59 06:59 14:59 Intake Total 600 Output Total 350 Balance -350 600 Intake: Oral 600 Output: Estimated Blood Loss 200 Output, Quantitative 150 Blood Loss Other: # Voids 1 2 2 - Exam Extremities: Present: normal Abdomen: Present: normal appearance, soft Uterus: Present: normal, firm - Labs Labs: Abnormal Lab Results - Last 24 Hours (Table) 07/23/22 Range/Units 06:42 WBC 15.1 H (3.8-10.6) k/uL RBC 3.11 L (3.80-5.40) m/uL Hgb 8.8 L D (11.4-16.0) gm/dL Hct 25.8 L (34.0-46.0) % Neutrophils # 12.8 H (1.3-7.7) k/uL Assessment and Plan Assessment: 26 y/o now PPD#1 s/p NVD after eIOL at 39 weeks, 5 days for viable female infant Plan: - Patient meeting all milestones appropriately. Patient desires discharge to home today. - Viable female at the bedisde, doing well and formula feeding well - Discussed 6 weeks of pelvic rest and discussed risks of short interval (less than 12 months) including low weight and delivery Dispo: Will discharge home this evening after 24 hours with motrin, tylenol, ferrous sulfate, and colace. Follow up in the office in 6 weeks for visit.
--- NOTE | 2022-07-23 08:26 | P.DS ---
Providers Date of admission: 07/22/22 05:55 Expected date of discharge: 07/23/22 Attending physician: Marian Schmidt MD Primary care physician: Stated None Hospital Course: This is a 26 year old now who underwent elective induction of labor at 39 weeks and 5 days. Cooks catheter was placed at admission and oxytocin was started. The patient progressed quickly through the first and second stage of labor resulting in a normal vaginal delivery with a second degree laceration that was repaired in the usual fashion. The patient met milestones appropriately, female is doing well at the bedside, and she desires discharge home this evening after 24 hours . I discussed pelvic rest for 6 weeks with the patient and recommend beginning contraception at 6 weeks to prevent a short interval . Risks were discussed. All questions were answered. Patient Condition at Discharge: Good Plan - Discharge Summary Discharge Rx Participant: No New Discharge Prescriptions: New Docusate [Colace] 100 mg PO DAILY PRN #30 capsule PRN Reason: Constipation Ibuprofen [Motrin] 600 mg PO Q6HR PRN #30 tab PRN Reason: Mild Pain (Scale 1 To 3) Acetaminophen Tab [Tylenol] 650 mg PO Q6H PRN #30 tab PRN Reason: Mild Pain (Scale 1 To 3) Ferrous Sulfate [Feosol] 325 mg PO DAILY #30 tab No Action Aspirin [Vazalore] 162 mg PO DAILY Montelukast [Singulair] 10 mg PO DAILY Omeprazole [PriLOSEC] 10 mg PO DAILY Folic Acid 1 mg PO DAILY Cetirizine HCl [Zyrtec] 10 mg PO DAILY Discharge Medication List Aspirin [Vazalore] 162 mg PO DAILY 06/13/22 [History] Cetirizine HCl [Zyrtec] 10 mg PO DAILY 06/13/22 [History] Folic Acid 1 mg PO DAILY 06/13/22 [History] Montelukast [Singulair] 10 mg PO DAILY 06/13/22 [History] Omeprazole [PriLOSEC] 10 mg PO DAILY 06/13/22 [History] Acetaminophen Tab [Tylenol] 650 mg PO Q6H PRN #30 tab 07/23/22 [Rx] Docusate [Colace] 100 mg PO DAILY PRN #30 capsule 07/23/22 [Rx] Ferrous Sulfate [Feosol] 325 mg PO DAILY #30 tab 12/17/22 [Rx] Ibuprofen [Motrin] 600 mg PO Q6HR PRN #30 tab 07/23/22 [Rx] Follow up Appointment(s)/Referral(s): Marian Schmidt MD [STAFF PHYSICIAN] - 1 Week Patient Instructions/Handouts: Vaginal Delivery (DC), Bleeding (DC), Depression (DC), Breast Care for the Non- Mother (DC), Caring for Your Baby (DC) Activity/Diet/Wound Care/Special Instructions: Activity as tolerated. Take medications as prescribed. Pelvic rest for 6 weeks. Discharge Disposition: HOME SELF-CARE
[2022-07-23] MEDS: ACETAMINOPHEN TAB 325 MG TAB PO PRN ×2 (11:24→18:24)
[2022-07-23] MEDS ORDERED: FERROUS SULFATE 325 MG TAB PO SCH (12:30)
[2022-07-23 20:42] VITALS: BP 110/73; PULSE 99; RESP 14; TEMP 97.8
== END 2022-07-23 21:00 | disposition home or self-care (01) | DRG 807 ==
LOC: 4FBP 05:55
PROVIDERS: ADMIT Obstetrics & Gynecology; ATTEND Obstetrics & Gynecology
PROC: 10E0XZZ Delivery of Products of Conception, External Approach (ICD-10-PCS; principal; 2022-07-22)
PROC: 3E033VJ Introduction of Other Hormone into Peripheral Vein, Percutaneous Approach (ICD-10-PCS; principal; 2022-07-22)
PROC: 0KQM0ZZ Repair Perineum Muscle, Open Approach (ICD-10-PCS; principal; 2022-07-22)
DX: O70.1 Second degree perineal laceration during delivery (principal); Z37.0 Single live birth; O99.52 Diseases of the respiratory system complicating childbirth; J45.909 Unspecified asthma, uncomplicated; Z3A.39 39 weeks gestation of pregnancy; Z79.899 Other long term (current) drug therapy; Z91.013 Allergy to seafood; Z88.8 Allergy status to other drugs, medicaments and biological substances; Z91.040 Latex allergy status
CPT/HCPCS: 85025; 86850; 86900; 86901

== ENCOUNTER → 2022-11-12 | Outpatient (CLI) | payer BC | END | disposition home or self-care (01) | LOC: LABWHC1 09:13 | PROVIDERS: ATTEND Obstetrics & Gynecology | DX: O20.0 Threatened abortion (principal); Z3A.00 Weeks of gestation of pregnancy not specified | CPT/HCPCS: 36415; 84702 ==

== ENCOUNTER → 2022-11-14 | Outpatient (CLI) | payer BC | END | disposition home or self-care (01) | LOC: LABWHC1 07:03 | PROVIDERS: ATTEND Obstetrics & Gynecology | DX: O20.0 Threatened abortion (principal); Z3A.00 Weeks of gestation of pregnancy not specified | CPT/HCPCS: 36415; 84702 ==

== ENCOUNTER 2023-05-18 09:48 | Outpatient (CLI) | payer BC ==
[2023-05-18] MEDS ORDERED: LACTATED RINGERS 1,000 ML IV SCH (10:45)
[2023-05-18 10:52] LABS: Anisocytosis Slight; Basophils % (A) 0 %; Eosinophils # (A) 0.1 k/uL (0-0.7); Eosinophils % (A) 1 %; HCT 28.8 % (34.0-46.0); HGB 9.4 gm/dL (11.4-16.0); Lymphocytes % (A) 11 %; MCH 27.1 pg (25.0-35.0); MCHC 32.5 g/dL (31.0-37.0); MCV 83.5 fL (80.0-100.0); Mean Platelet Volume 11.3; Monocytes # (A) 0.3 k/uL (0-1.0); Monocytes % (A) 4 %; Neutrophils # (A) 7.3 k/uL (1.3-7.7); Neutrophils % (A) 83 %; Platelet Count 156 k/uL (150-450); RBC 3.45 m/uL (3.80-5.40); RDW 16.9 % (11.5-15.5); WBC 8.7 k/uL (3.8-10.6)
[2023-05-18 11:02] LABS: Appearance,Urine Cloudy (Clear); Bacteria,Urine Rare /hpf; Bilirubin,Urine Negative (Negative); Blood,Urine Negative (Negative); Color,Urine Colorless; Glucose,Urine (UA) Negative (Negative); Ketones,Urine Negative (Negative); Leukocyte Esterase,Urine Moderate (Negative); Nitrite,Urine Negative (Negative); PH, Urine 5.5 (5.0-8.0); Protein,Urine Negative (Negative); Specific Gravity,Urine 1.005 (1.001-1.035); Squamous Epithelial Cell,Urine 12 /hpf (0-4); Urobilinogen,Urine <2.0 mg/dL (<2.0); WBC,Urine 6 /hpf (0-5)
[2023-05-18 13:46] VITALS: BP 107/70; PULSE 126; RESP 17; TEMP 95.1
--- NOTE | 2023-06-10 09:54 | P.MSEPDOC ---
Presenting Problems - Arrival Data Date of Arrival on Unit: 05/18/23 Time of Arrival on Unit: 09:48 Mode of Transport: Ambulatory - Complaint OB-Reason for Admission/Chief Complaint: Acute Nausea/Vomiting, Dizziness, Other Comment: lightheaded and vaginal pressure Medical History - Information : 4 Para: 1 Term: 1 : 0 Abortions: Spontaneous or Elective: 2 Number of Living Children: 1 - Gestational Age Gestational Age by PAMELA (wks/days): 31 Weeks and 6 Days - History Complications: No Care Review of Systems - Review of Systems Constitutional: No problems Breast: No problems ENT: No problems Cardiovascular: No problems Respiratory: No problems Gastrointestinal: No problems Genitourinary: No problems Musculoskeletal: No problems Neurological: No problems Skin: No problems Vital Signs - Temperature Temperature: 95.1 F Temperature Source: Temporal Artery Scan - Pulse Right Pulse Rate: 126 Pulse Assessment Method: Automatic Cuff - Respirations Respiratory Rate: 17 Oxygen Delivery Method: Room Air O2 Sat by Pulse Oximetry: 98 - Blood Pressure Right Arm Blood Pressure: 107/70 Blood Pressure Mean: 82 Blood Pressure Source: Automatic Cuff Medical Screen Scoring - Cervical Exam Dilation (cm): 1 Membranes: Intact - Uterine Contractions Frequency From (mins): 2 Frequency To (mins): 10 Intensity: Mild Resting: Soft to palpation - Assessment - Baby A Baseline FHR: 135 Heart Rate - NICHD Category: Category I (Normal) NST: Reactive Physician Notification - Physician Notified Physician Notified Date: 05/18/23 Physician Notified Time: 10:29 Physician: Suma Thurston New Order Received: Yes - Notification Comment Comment: Dr Thurston notified of elevated maternal HR and contractions, orders received for treatment, called back with update status and okay to D/C Maternal Triage Index - Maternal Triage Index Presenting for scheduled procedure w/no complaint: No - Stat/Priority 1 Stat Priority 1: No - Urgent/Priority 2 Urgent Priority 2: Yes Provider Notified: Suma Thurston Provider Notified Time: 10:29 Criteria Met for Priority 2: 31 6/7, Contractions, Maternal HR 120's Disposition - Disposition OB Disposition: Discharge to home Discharge Date: 05/18/23 Discharge Time: 13:22 I agree with the RN Medical Screening Exam: Yes Case reviewed; plan agreed upon as documented in EMR&OBIX.: Yes Diagnosis: meternal tachycardia, rule out labor
== END 2023-05-18 13:22 | disposition home or self-care (01) ==
LOC: FBPOP 09:48
PROVIDERS: ATTEND Obstetrics & Gynecology
DX: O47.03 False labor before 37 completed weeks of gestation, third trimester (principal); O99.413 Diseases of the circulatory system complicating pregnancy, third trimester; R00.0 Tachycardia, unspecified; Z3A.31 31 weeks gestation of pregnancy; Z88.8 Allergy status to other drugs, medicaments and biological substances; Z91.040 Latex allergy status; Z91.013 Allergy to seafood
CPT/HCPCS: 36415; 59025; 81001; 82731; 85025; 96360; 99214

== ENCOUNTER 2023-06-25 20:07 | Inpatient (IN) | payer BC ==
[2023-06-25 20:58] LABS: Appearance,Urine Cloudy (Clear); Bacteria,Urine Rare /hpf; Bilirubin,Urine Negative (Negative); Blood,Urine Negative (Negative); Color,Urine Colorless; Glucose,Urine (UA) Negative (Negative); Ketones,Urine Negative (Negative); Leukocyte Esterase,Urine Moderate (Negative); Mucus,Urine Rare /hpf; Nitrite,Urine Negative (Negative); Protein,Urine Negative (Negative); RBC,Urine 1 /hpf (0-5); Squamous Epithelial Cell,Urine 17 /hpf (0-4); Urobilinogen,Urine <2.0 mg/dL (<2.0); WBC,Urine 16 /hpf (0-5)
[2023-06-25] MEDS ORDERED: TERBUTALINE 1 MG/ML VIAL SQ PRN (23:06)
[2023-06-25] MEDS ORDERED: TRANEXAMIC 1,000 MG/100ML-NACL 1,000 MG in EMPTY BAG 1 BAG IV PRN (23:06)
[2023-06-25] MEDS ORDERED: METHYLERGONOVINE 0.2 MG/ML 1 ML AMP IM PRN (23:06)
[2023-06-25] MEDS ORDERED: miSOPROStoL 200 MCG TAB PO PRN (23:06)
[2023-06-25] MEDS ORDERED: LIDOCAINE 0.5% (PF) 5 MG/ML (50 ML SDV) SQ PRN (23:06)
[2023-06-25] MEDS ORDERED: CARBOPROST TROMETHAMINE 250 MCG/ML 1 ML AMP IM PRN (23:06)
[2023-06-25] MEDS ORDERED: OXYTOCIN 10 UNIT/ML 1 ML VIAL IM PRN (23:06)
[2023-06-25] MEDS ORDERED: OXYTOCIN 30 UNITS/500 ML NS 30 UNIT in SALINE 1 500ML.BAG IV SCH (23:15)
[2023-06-25] MEDS: LACTATED RINGERS 1,000 ML IV SCH (23:30)
[2023-06-25] MEDS: NALBUPHINE 10 MG/ML (10 ML MDV) IV PRN (23:30)
[2023-06-26 00:49] LABS: Anisocytosis Slight; Basophils % (A) 0 %; Eosinophils # (A) 0.1 k/uL (0-0.7); Eosinophils % (A) 1 %; HGB 10.8 gm/dL (11.4-16.0); Lymphocytes # (A) 1.4 k/uL (1.0-4.8); Lymphocytes % (A) 18 %; MCHC 32.7 g/dL (31.0-37.0); MCV 85.6 fL (80.0-100.0); Mean Platelet Volume 11.5; Monocytes # (A) 0.4 k/uL (0-1.0); Monocytes % (A) 5 %; Neutrophils # (A) 5.5 k/uL (1.3-7.7); Neutrophils % (A) 73 %; Platelet Count 145 k/uL (150-450); RBC 3.86 m/uL (3.80-5.40); RDW 16.4 % (11.5-15.5); WBC 7.6 k/uL (3.8-10.6)
[2023-06-26] MEDS: LACTATED RINGERS 1,000 ML IV SCH (02:46)
[2023-06-26] MEDS: NALBUPHINE 10 MG/ML (10 ML MDV) IV PRN ×2 (04:19→08:13)
--- NOTE | 2023-06-26 07:50 | P.HPOB ---
History of Present Illness H&P Date: 06/26/23 Chief Complaint: Contractions Ms. Batista is a 27 year old at 37 weeks and 3 days with EDC of 07/14/2023 by 6 week US who presents to labor and delivery with regular, painful contractions and cervical change. has been complicated by anemia for which she has been taking PO ferrous sulfate. This was also a short-interval after her last delivery. On 36 week ultrasound, the fetus was estimated to measure 6#12ounces in the 63%ile for gestational age. Obstetric history: Elective induction at 39 weeks resulting in normal vaginal delivery of female , no complications Past medical history: Mild intermittent asthma on abluterol and inhaled co rticosteroids for management during Past Medical History Past Medical History: Asthma Additional Past Medical History / Comment(s): miscarrages 03/27 07/27, hx of tachycardia, seasonal allergies History of Any Multi-Drug Resistant Organisms: None Reported Past Surgical History: Orthopedic Surgery Additional Past Surgical History / Comment(s): D&C, cyst removal L hand Lfoot, wisdom teeth, L hand Past Anesthesia/Blood Transfusion Reactions: No Reported Reaction Past Psychological History: No Psychological Hx Reported Smoking Status: Never smoker Past Alcohol Use History: None Reported Past Drug Use History: None Reported - Past Family History Father Family Medical History: Diabetes Mellitus, Hypertension Mother Family Medical History: Thyroid Disorder Medications and Allergies Home Medications Medication Instructions Recorded Confirmed Type Aspirin [Vazalore] 162 mg PO DAILY 06/13/22 06/25/23 History Cetirizine HCl [Zyrtec] 10 mg PO DAILY 06/13/22 06/25/23 History Folic Acid 1 mg PO DAILY 06/13/22 06/25/23 History Montelukast [Singulair] 10 mg PO DAILY 06/13/22 06/25/23 History Omeprazole [PriLOSEC] 20 mg PO DAILY 06/13/22 06/25/23 History Ferrous Sulfate [Feosol] 325 mg PO DAILY #30 tab 07/23/22 06/25/23 Rx Albuterol Sulfate [Proair 2 puff INHALATION Q4H PRN 05/18/23 06/25/23 History Respiclick] Allergies Allergy/AdvReac Type Severity Reaction Status Date / Time iodine Allergy Rash/Hives Verified 05/18/23 10:05 shellfish derived [Shellfish] Allergy Rash/Hives Verified 05/18/23 10:05 latex AdvReac Rash/Hives Verified 05/18/23 10:05 Exam Vital Signs Temp Pulse Resp BP Pulse Ox 06/25/23 23:06 98.5 F 99 16 101/72 06/25/23 20:13 97.6 F 99 16 115/65 96 Intake and Output 06/25/23 06/26/23 06/26/23 22:59 06:59 14:59 Other: Weight 83.461 kg 83.461 kg Focused physical exam is performed. This is a healthy-appearing in no apparent distress. Breathing is non-labored. Abdomen is gravid and non-tender. Cervical exam is 4 cm, 90% effacement, -2 station. AROM is undertaken with clear fluid noted. Extremities non-tender and non-edematous. heart tones are Category I and tocometer is graphing contractions every 2-4 minutes. Results Result Diagrams: 06/25/23 23:30 Abnormal Lab Results - Last 24 Hours (Table) 06/25/23 06/25/23 Range/Units 20:23 23:30 Hgb 10.8 L (11.4-16.0) gm/dL Hct 33.0 L (34.0-46.0) % RDW 16.4 H (11.5-15.5) % Plt Count 145 L (150-450) k/uL Urine Appearance Cloudy H (Clear) Ur Leukocyte Esterase Moderate H (Negative) Urine WBC 16 H (0-5) /hpf Ur Squamous Epith Cells 17 H (0-4) /hpf Urine Bacteria Rare H (None) /hpf Urine Mucus Rare H (None) /hpf Assessment and Plan Assessment: 27 year old at 37 weeks and 3 days in labor Plan: Admit, NPO, mIVF, expectant management, continuous EFM and tocometer, close monitoring of patient. Anticipate vaginal delivery. Time with Patient: Less than 30
[2023-06-26] MEDS ORDERED: BENZOCAINE/MENTHOL SPRAY 1 GM/SPRAY AEROSOL TOPICAL PRN (10:46)
[2023-06-26] MEDS ORDERED: ZOLPIDEM 5 MG TAB PO PRN (10:46)
[2023-06-26] MEDS ORDERED: diphenhydrAMINE 50 MG/ML 1 ML VIAL IVP PRN ×2 (10:46)
[2023-06-26] MEDS ORDERED: LANOLIN CREAM 5 GM TUBE TOPICAL PRN (10:46)
[2023-06-26] MEDS ORDERED: diphenhydrAMINE 25 MG CAP PO PRN (10:46)
[2023-06-26] MEDS ORDERED: diphenhydrAMINE 50 MG CAP PO PRN (10:46)
[2023-06-26] MEDS ORDERED: SIMETHICONE 80 MG CHEWABLE PO PRN (10:46)
[2023-06-26] MEDS ORDERED: HYDROCORTISONE 2.5% RECTAL CREAM 30 GM TUBE RECTAL PRN (10:46)
--- NOTE | 2023-06-26 10:46 | P.PROBDLV ---
Vaginal Delivery Note - . Vaginal Delivery Note: DATE OF SERVICE: 06/26/2023 PROCEDURE: Normal Vaginal Delivery ATTENDING: Dr. Marian Schmidt MD ESTIMATED BLOOD LOSS: 200 mL FINDINGS: VMI, Apgars 9/9. Weight 7 pounds and 3 ounces (3260 grams) PROCEDURE: Ms. Batista is a 27 year old at 37 weeks and 3 days presenting to labor and delivery in active labor. The has been complicated by mild intermittent asthma and a short inter- interval. For further details, please review the admitting H&P. AROM was undertaken at 655 revealing clear fluid. The patient was completely dilated at 1020. She pushed effectively and a viable male infant was delivered at 1023 without difficulty. The infant was placed on the maternal abdomen and bulb suctioned. The infant was noted to be spontaneously crying. Cord was clamped and cut after a 30-second delay. The was handed off to the pediatric team. Placenta was delivered whole with gentle cord traction at 1025. Oxytocin was started to facilitate uterine tone. Uterine fundus was found to be firm and below the umbilicus upon fundal massage. Thorough examination of the cervix, vagina, periurethral area, and perineum revealed a small first degree laceration that was infiltrated with lidocaine and repaired in the usual fashion with 3-0 Viryl. The patient is stable and allowed to begin the bonding process.
[2023-06-26] MEDS: IBUPROFEN 600 MG TAB PO PRN ×2 (11:40→18:20)
[2023-06-26] MEDS: ACETAMINOPHEN TAB 325 MG TAB PO PRN ×2 (15:22→22:14)
[2023-06-26] MEDS: SENNOSIDES-DOCUSATE SODIUM 1 EACH TAB PO SCH (18:20)
[2023-06-26 20:29] VITALS: TEMP 98.1
[2023-06-27] MEDS: IBUPROFEN 600 MG TAB PO PRN ×2 (01:10→09:43)
[2023-06-27 02:45] VITALS: RESP 16
[2023-06-27] MEDS: ACETAMINOPHEN TAB 325 MG TAB PO PRN (03:47)
[2023-06-27 06:33] LABS: Anisocytosis Slight; Basophils % (A) 0 %; Eosinophils # (A) 0.2 k/uL (0-0.7); Eosinophils % (A) 2 %; HCT 29.6 % (34.0-46.0); HGB 10.4 gm/dL (11.4-16.0); Lymphocytes # (A) 1.5 k/uL (1.0-4.8); Lymphocytes % (A) 15 %; MCH 29.5 pg (25.0-35.0); MCHC 35.1 g/dL (31.0-37.0); MCV 84.1 fL (80.0-100.0); Mean Platelet Volume 10.5; Monocytes # (A) 0.5 k/uL (0-1.0); Monocytes % (A) 6 %; Neutrophils # (A) 7.1 k/uL (1.3-7.7); Neutrophils % (A) 75 %; Platelet Count 168 k/uL (150-450); RBC 3.53 m/uL (3.80-5.40); RDW 16.6 % (11.5-15.5); WBC 9.5 k/uL (3.8-10.6)
--- NOTE | 2023-06-27 07:57 | P.DS ---
Providers Date of admission: 06/25/23 22:46 Expected date of discharge: 06/27/23 Attending physician: Marian Schmidt MD Primary care physician: Stated None Hospital Course: Ms. Batista is a 27 year old now PPD#1 s/p normal spontaneous vaginal delivery. The patient is doing well this morning and had no acute events overnight. She has no complaints this morning. She reports minimal lochia, passing flatus, voiding without difficulty, ambulating, and eating/drinking without nausea or vomiting. Infant doing well at bedside, s/p circumcision. She denies chest pain, shortness of breathing, fevers, or chills overnight. She denies pain or swelling in the legs. restrictions are reviewed with the patient including pelvic rest for 6 weeks. The patient is encouraged to call the office if she experiences any heavy bleeding, foul-smelling discharge, breast complaints, or any if she has any other concerns. She will follow up in the office with in 6 weeks for exam. She will take motrin and tylenol over the counter for pain. All questions are answered. Assessment: 27 year old now PPD#1 s/p Patient Condition at Discharge: Good Plan - Discharge Summary New Discharge Prescriptions: No Action Aspirin [Vazalore] 162 mg PO DAILY Montelukast [Singulair] 10 mg PO DAILY Omeprazole [PriLOSEC] 20 mg PO DAILY Albuterol Sulfate [Proair Respiclick] 2 puff INHALATION Q4H PRN PRN Reason: Shortness Of Breath Folic Acid 1 mg PO DAILY Cetirizine HCl [Zyrtec] 10 mg PO DAILY Ferrous Sulfate [Feosol] 325 mg PO DAILY #30 tab Discharge Medication List Aspirin [Vazalore] 162 mg PO DAILY 06/13/22 [History] Cetirizine HCl [Zyrtec] 10 mg PO DAILY 06/13/22 [History] Folic Acid 1 mg PO DAILY 06/13/22 [History] Montelukast [Singulair] 10 mg PO DAILY 06/13/22 [History] Omeprazole [PriLOSEC] 20 mg PO DAILY 06/13/22 [History] Ferrous Sulfate [Feosol] 325 mg PO DAILY #30 tab 07/23/22 [Rx] Albuterol Sulfate [Proair Respiclick] 2 puff INHALATION Q4H PRN 05/18/23 [History] Follow up Appointment(s)/Referral(s): Marian Schmidt MD [STAFF PHYSICIAN] - 6 Weeks Activity/Diet/Wound Care/Special Instructions: Instructions 1. Do not begin any exercise program for 3 weeks. 2. Do not resume sexual relations for 6 weeks or longer if uncomfortable. 3. You may take tub baths or showers at any time. 4. You may use tampons if desired after 6 weeks. 5. Keep any areas repaired with stitches clean and dry. 6. If you are not nursing, wear a good fitting, supportive bra during the day and limit fluid intake for at least 1 week to prevent breast engorgement. 7. Call the office, , within the next week to make appointment for your 6 week checkup if it has not already been made. 8. Report any of the following occurrences to the doctor promptly: a. Heavy, excessive bleeding b. Chills, fever c. Burning or frequency of urination d. Pain or redness and breasts if nursing e. Increasing pain or swelling of vulva (stitches). In addition to the above instructions, the following additional should be followed: 1. No heavy lifting or straining (exercising) until after 6 week checkup. 2. Keep abdominal incision clean and dry: You may wear a dressing if more comfortable. 3. Make office appointment for 2 weeks after delivery date. Discharge Disposition: HOME SELF-CARE
[2023-06-27 09:23] VITALS: PULSE 95
[2023-06-27] MEDS: SENNOSIDES-DOCUSATE SODIUM 1 EACH TAB PO SCH (09:43)
[2023-06-27 13:46] VITALS: BP 101/64
== END 2023-06-27 13:59 | disposition home or self-care (01) | DRG 807 ==
LOC: FBPOP 20:07 → 4FBP 22:46
PROVIDERS: ADMIT Obstetrics & Gynecology; ATTEND Obstetrics & Gynecology
PROC: 10E0XZZ Delivery of Products of Conception, External Approach (ICD-10-PCS; principal; 2023-06-25)
PROC: 0HQ9XZZ Repair Perineum Skin, External Approach (ICD-10-PCS; 2023-06-25)
PROC: 10907ZC Drainage of Amniotic Fluid, Therapeutic from Products of Conception, Via Natural or Artificial Opening (ICD-10-PCS; 2023-06-25)
PROC: 3E033VJ Introduction of Other Hormone into Peripheral Vein, Percutaneous Approach (ICD-10-PCS; 2023-06-25)
DX: O99.52 Diseases of the respiratory system complicating childbirth (principal); Z37.0 Single live birth; O70.0 First degree perineal laceration during delivery; Z3A.37 37 weeks gestation of pregnancy; Z79.899 Other long term (current) drug therapy; O99.02 Anemia complicating childbirth; J45.20 Mild intermittent asthma, uncomplicated; Z91.041 Radiographic dye allergy status; Z91.013 Allergy to seafood
CPT/HCPCS: 59025; 81001; 85025; 86850; 86900; 86901; 87086; 99213

== ENCOUNTER → 2023-08-01 | Outpatient (CLI) | payer BC | END | disposition home or self-care (01) | LOC: LABWHC1 11:58 | PROVIDERS: ATTEND Nurse Practitioner Family | DX: J30.89 Other allergic rhinitis (principal) | CPT/HCPCS: 36415 ==

== ENCOUNTER 2024-11-21 02:59 | Emergency (ER) | payer BC ==
--- NOTE | 2024-11-21 03:20 | ED ---
ENT HPI - General Chief complaint: ENT Stated complaint: left ear pain Time Seen by Provider: 11/21/24 03:04 Source: patient Mode of arrival: ambulatory Limitations: no limitations - History of Present Illness Initial comments: 28-year-old female presenting with chief complaint of left ear pain. Patient is currently being treated for otitis media with cefdinir due to a penicillin allergy. States that tonight around 2 AM she had sudden onset worsening pain. She states that she believes her eardrum may have ruptured. She did have a lot of drainage from the ear, states it was difficult to tell the color but she believes it was clear. No blood. She does have acute hearing loss as well. She follows with ENT Dr. Rosa. - Related Data Home Medications Medication Instructions Recorded Confirmed Aspirin [Vazalore] 162 mg PO DAILY 06/13/22 06/25/23 Cetirizine HCl [Zyrtec] 10 mg PO DAILY 06/13/22 06/25/23 Folic Acid 1 mg PO DAILY 06/13/22 06/25/23 Montelukast [Singulair] 10 mg PO DAILY 06/13/22 06/25/23 Omeprazole [PriLOSEC] 20 mg PO DAILY 06/13/22 06/25/23 Albuterol Sulfate [Proair 2 puff INHALATION Q4H PRN 05/18/23 06/25/23 Respiclick] Previous Rx's Medication Instructions Recorded Ferrous Sulfate [Feosol] 325 mg PO DAILY #30 tab 07/23/22 Allergies Allergy/AdvReac Type Severity Reaction Status Date / Time iodine Allergy Rash/Hives Verified 11/21/24 03:04 Penicillins Allergy Rash/Hives Verified 11/21/24 03:04 shellfish derived [Shellfish] Allergy Rash/Hives Verified 11/21/24 03:04 latex AdvReac Rash/Hives Verified 11/21/24 03:04 Review of Systems ROS Statement: Those systems with pertinent positive or pertinent negative responses have been documented in the HPI. ROS Other: All systems not noted in ROS Statement are negative. Past Medical History Past Medical History: Asthma Additional Past Medical History / Comment(s): miscarrages 03/27 07/27, hx of tachycardia, seasonal allergies History of Any Multi-Drug Resistant Organisms: None Reported Past Surgical History: Orthopedic Surgery Additional Past Surgical History / Comment(s): D&C, cyst removal L hand Lfoot, wisdom teeth, L hand Past Anesthesia/Blood Transfusion Reactions: No Reported Reaction Past Psychological History: No Psychological Hx Reported Smoking Status: Never smoker Past Alcohol Use History: None Reported Past Drug Use History: None Reported - Past Family History Father Family Medical History: Diabetes Mellitus, Hypertension Mother Family Medical History: Thyroid Disorder General Exam Limitations: no limitations General appearance: alert, in no apparent distress Head exam: Present: atraumatic, normocephalic, normal inspection Eye exam: Present: normal appearance, EOMI. Absent: periorbital swelling Expanded TM/Canal exam: Perforation: Left TM Neck exam: Present: normal inspection. Absent: meningismus Respiratory exam: Absent: respiratory distress Neurological exam: Present: alert, oriented X3 Psychiatric exam: Present: normal affect, normal mood Skin exam: Present: warm, dry, normal color Course Vital Signs 11/21/24 03:00 Temperature 97.5 F L Pulse Rate 115 H Respiratory 16 Rate Blood Pressure 115/77 O2 Sat by Pulse 98 Oximetry Medical Decision Making - Medical Decision Making Was pt. sent in by a medical professional or institution (, PA, RETURNED ITEM CLERK, urgent care, hospital, or prison...) When possible be specific @ -No Did you speak to anyone other than the patient for history (EMS, parent, family, police, friend...)? What history was obtained from this source @ -No Did you review nursing and triage notes (agree or disagree)? Why? @ -I reviewed and agree with nursing and triage notes Were old charts reviewed (outside hosp., previous admission, EMS record, old EKG, old radiological studies, urgent care reports/EKG's, prison records)? Report findings @ -No old charts were reviewed Differential Diagnosis (chest pain, altered mental status, abdominal pain women, abdominal pain men, vaginal bleeding, weakness, fever, dyspnea, syncope, headache, dizziness, GI bleed, back pain, seizure, CVA, palpatations, mental health, musculoskeletal)? @ -Differential includes tympanic membrane rupture, otitis media, mastoiditis, otitis externa, not an all-inclusive list EKG interpreted by me (3pts min.). @ -As above X-rays interpreted by me (1pt min.). @ -None done CT interpreted by me (1pt min.). @ -None done U/S interpreted by me (1pt. min.). @ -None done What testing was considered but not performed or refused? (CT, X-rays, U/S, labs)? Why? @ -None What meds were considered but not given or refused? Why? @ -None Did you discuss the management of the patient with other professionals (professionals i.e. Dr., PA, RETURNED ITEM CLERK, lab, RT, psych nurse, manager social, tempering oven operator, teacher, sanitation officer, child welfare caseworker)? Give summary @ -No Was smoking cessation discussed for >3mins.? @ -No Was critical care preformed (if so, how long)? @ -No Were there social determinants of health that impacted care today? How? (Homelessness, low income, unemployed, alcoholism, drug addiction, transportation, low edu. Level, literacy, decrease access to med. care, [facility], rehab)? @ -No Was there de-escalation of care discussed even if they declined (Discuss DNR or withdrawal of care, Hospice)? DNR status @ -No What co-morbidities impacted this encounter? (DM, HTN, Smoking, COPD, CAD, Cancer, CVA, ARF, Chemo, Hep., AIDS, mental health diagnosis, sleep apnea, morbid obesity)? @ -None Was patient admitted / discharged? Hospital course, mention meds given and route, prescriptions, significant lab abnormalities, going to OR and other pertinent info. @ -28-year-old female presenting chief complaint of left ear pain. She is currently being treated for an ear infection with cefdinir. She had drainage and acute hearing loss this evening along with acute worsening of the pain. On examination there is evidence of left tympanic membrane rupture. Patient is instructed to continue her cefdinir. She is provided with pain medication. Instructed to follow-up with her ENT Dr. Husain. Follow-up with PCP. Report back to ER with any new or worsening symptoms. Discussed return parameters and answered all questions. Patient conveyed verbal understanding and agreed to the plan. I discussed this case in detail with my attending Dr. Mehta Undiagnosed new problem with uncertain prognosis? @ -No Drug Therapy requiring intensive monitoring for toxicity (Heparin, Nitro, Insulin, Cardizem)? @ -No Were any procedures done? @ -No Diagnosis/symptom? @ -tympanic membrane rupture Acute, or Chronic, or Acute on Chronic? @ -Acute Uncomplicated (without systemic symptoms) or Complicated (systemic symptoms)? @ -Uncomplicated Side effects of treatment? @ -No Exacerbation, Progression, or Severe Exacerbation? @ -No Poses a threat to life or bodily function? How? (Chest pain, [place], [place], pneumonia, PE, COPD, DKA, ARF, appy, cholecystitis, CVA, Diverticulitis, Homicidal, Suicidal, threat to staff... and all critical care pts) @ -Unlikely Disposition Clinical Impression: Tympanic membrane rupture Disposition: HOME SELF-CARE Condition: Good Instructions (If sedation given, give patient instructions): Ruptured Eardrum (ED) Additional Instructions: Follow-up with your ENT. Report back to ER with any new or worsening symptoms, including but not limited to redness and swelling behind the ear, fever, pus- like discharge from the ear Is patient prescribed a controlled substance at d/c from ED?: No Referrals: None,Stated [Primary Care Provider] - 1-2 days Jacob Candelaria MD [STAFF PHYSICIAN] - 1-2 days Time of Disposition: 03:20
[2024-11-21] MEDS: KETOROLAC 15 MG/ML 1 ML VIAL IM STA (03:36)
[2024-11-21] MEDS: ACET/COD 300 MG/30 MG STARTER PACK 6 TAB BTL PO STA (03:38)
[2024-11-21] MEDS: Acetaminophen-Codeine 300-30mg TAB PO STA (03:38)
[2024-11-21 03:51] VITALS: BP 114/74; PULSE 89; RESP 17; TEMP 97.7
== END 2024-11-21 03:49 | disposition home or self-care (01) ==
LOC: EC 02:59
DX: H72.92 Unspecified perforation of tympanic membrane, left ear (principal); Z88.0 Allergy status to penicillin; Z91.041 Radiographic dye allergy status; Z91.013 Allergy to seafood; Z91.040 Latex allergy status
CPT/HCPCS: 99283; 96372; J1885

== ENCOUNTER 2024-12-03 06:44 | Emergency (ER) | payer BC ==
--- NOTE | 2024-12-03 07:32 | ED ---
ENT HPI - General Chief complaint: ENT Stated complaint: ear pain Time Seen by Provider: 12/03/24 06:52 Source: patient, RN notes reviewed Mode of arrival: ambulatory Limitations: no limitations - History of Present Illness Initial comments: 28-year-old female presents emergency department due to ear pain. Patient dates that she is dealing with an infection and states that it is healing up follow-up with ENT without eardrops and oral antibiotics financials and shortly after started again. Patient states the pain is deep inside her ear no fevers or chills she does have severe allergies she states she is only using Zyrtec she used to be on Singulair and nasal spray that she has not been using. Patient denies difficulty swallowing no headache no dizziness. - Related Data Home Medications Medication Instructions Recorded Confirmed Aspirin [Vazalore] 162 mg PO DAILY 06/13/22 06/25/23 Cetirizine HCl [Zyrtec] 10 mg PO DAILY 06/13/22 06/25/23 Folic Acid 1 mg PO DAILY 06/13/22 06/25/23 Montelukast [Singulair] 10 mg PO DAILY 06/13/22 06/25/23 Omeprazole [PriLOSEC] 20 mg PO DAILY 06/13/22 06/25/23 Albuterol Sulfate [Proair 2 puff INHALATION Q4H PRN 05/18/23 06/25/23 Respiclick] Previous Rx's Medication Instructions Recorded Ferrous Sulfate [Feosol] 325 mg PO DAILY #30 tab 07/23/22 Cefdinir 300 mg PO Q12HR #20 cap 12/03/24 Ketorolac [Toradol] 10 mg PO Q8HR #15 tab 12/03/24 Allergies Allergy/AdvReac Type Severity Reaction Status Date / Time iodine Allergy Rash/Hives Verified 12/03/24 06:49 Penicillins Allergy Rash/Hives Verified 12/03/24 06:49 shellfish derived [Shellfish] Allergy Rash/Hives Verified 12/03/24 06:49 latex AdvReac Rash/Hives Verified 12/03/24 06:49 Review of Systems ROS Statement: Those systems with pertinent positive or pertinent negative responses have been documented in the HPI. ROS Other: All systems not noted in ROS Statement are negative. Past Medical History Past Medical History: Asthma Additional Past Medical History / Comment(s): miscarrages 03/27 07/27, hx of tachycardia, seasonal allergies History of Any Multi-Drug Resistant Organisms: None Reported Past Surgical History: Orthopedic Surgery Additional Past Surgical History / Comment(s): D&C, cyst removal L hand Lfoot, wisdom teeth, L hand Past Anesthesia/Blood Transfusion Reactions: No Reported Reaction Past Psychological History: No Psychological Hx Reported Smoking Status: Never smoker Past Alcohol Use History: None Reported Past Drug Use History: None Reported - Past Family History Father Family Medical History: Diabetes Mellitus, Hypertension Mother Family Medical History: Thyroid Disorder General Exam Limitations: no limitations General appearance: alert, in no apparent distress Head exam: Present: atraumatic, normocephalic, normal inspection Eye exam: Present: normal appearance, PERRL, EOMI. Absent: scleral icterus, conjunctival injection, periorbital swelling ENT exam: Present: normal oropharynx, mucous membranes moist. Absent: normal exam, TM's normal bilaterally (Erythematous, fluid noted) Neck exam: Present: normal inspection, full ROM. Absent: tenderness, meningismus, lymphadenopathy Respiratory exam: Present: normal lung sounds bilaterally. Absent: respiratory distress, wheezes, rales, rhonchi, stridor Cardiovascular Exam: Present: regular rate, normal rhythm, normal heart sounds. Absent: systolic murmur, diastolic murmur, rubs, gallop, clicks Course Vital Signs 12/03/24 06:44 Temperature 98.3 F Pulse Rate 96 Respiratory 18 Rate Blood Pressure 121/74 O2 Sat by Pulse 97 Oximetry Medical Decision Making - Medical Decision Making Was pt. sent in by a medical professional or institution (, PA, SUPERVISOR CAB, urgent care, hospital, or skilled nursing...) When possible be specific @ -No Did you speak to anyone other than the patient for history (EMS, parent, family, police, friend...)? What history was obtained from this source @ -No Did you review nursing and triage notes (agree or disagree)? Why? @ -I reviewed and agree with nursing and triage notes Were old charts reviewed (outside hosp., previous admission, EMS record, old EKG, old radiological studies, urgent care reports/EKG's, skilled nursing records)? Report findings @ -No old charts were reviewed Differential Diagnosis (chest pain, altered mental status, abdominal pain women, abdominal pain men, vaginal bleeding, weakness, fever, dyspnea, syncope, headache, dizziness, GI bleed, back pain, seizure, CVA, palpatations, mental health, musculoskeletal)? @ -[Otitis media otitis externa eustachian tube dysfunction EKG interpreted by me (3pts min.). @ -None X-rays interpreted by me (1pt min.). @ -None done CT interpreted by me (1pt min.). @ -None done U/S interpreted by me (1pt. min.). @ -None done What testing was considered but not performed or refused? (CT, X-rays, U/S, labs)? Why? @ -None What meds were considered but not given or refused? Why? @ -None Did you discuss the management of the patient with other professionals (professionals i.e. , PA, SUPERVISOR CAB, lab, RT, psych nurse, oncology social worker, relish maker, teacher, soil science technical officer, home health care case manager)? Give summary @ -No Was smoking cessation discussed for >3mins.? @ -No Was critical care preformed (if so, how long)? @ -No Were there social determinants of health that impacted care today? How? (Homelessness, low income, unemployed, alcoholism, drug addiction, transportation, low edu. Level, literacy, decrease access to med. care, assisted, rehab)? @ -No Was there de-escalation of care discussed even if they declined (Discuss DNR or withdrawal of care, Hospice)? DNR status @ -No What co-morbidities impacted this encounter? (DM, HTN, Smoking, COPD, CAD, Cancer, CVA, ARF, Chemo, Hep., AIDS, mental health diagnosis, sleep apnea, morbid obesity)? @ -None Was patient admitted / discharged? Hospital course, mention meds given and route, prescriptions, significant lab abnormalities, going to OR and other perti nent info. @ -Discharge patient has otitis media restarted on oral antibiotics with concerns of perforation with recent perforation and was started on eardrops. Patient will follow-up with ENT return parameters matilde. Undiagnosed new problem with uncertain prognosis? @ -No Drug Therapy requiring intensive monitoring for toxicity (Heparin, Nitro, Insulin, Cardizem)? @ -No Were any procedures done? @ -No Diagnosis/symptom? @ -Otitis media recent perforation Acute, or Chronic, or Acute on Chronic? @ -Acute Uncomplicated (without systemic symptoms) or Complicated (systemic symptoms)? @ -Complicated Side effects of treatment? @ -No Exacerbation, Progression, or Severe Exacerbation? @ -No Poses a threat to life or bodily function? How? (Chest pain, [place], [place], pneumonia, PE, COPD, DKA, ARF, appy, cholecystitis, CVA, Diverticulitis, Homicidal, Suicidal, threat to staff... and all critical care pts) @ -No Disposition Clinical Impression: Otitis media Disposition: HOME SELF-CARE Condition: Stable Instructions (If sedation given, give patient instructions): Earache (ED) Additional Instructions: Use Ciprodex eardrops 4 drops twice daily for 10 days. Please return to the Emergency Department if symptoms worsen or any other concerns. Prescriptions: Cefdinir 300 mg PO Q12HR #20 cap Ketorolac [Toradol] 10 mg PO Q8HR #15 tab Is patient prescribed a controlled substance at d/c from ED?: No Referrals: Rocky Denise MD [Primary Care Provider] - 1-2 days Jacob Candelaria MD [STAFF PHYSICIAN] - 1-2 days Time of Disposition: 07:32
[2024-12-03] MEDS: ACET/COD 300 MG/30 MG STARTER PACK 6 TAB BTL PO STA (07:55)
[2024-12-03] MEDS: HYDROcodone/APAP 5-325MG 1 EACH TAB PO STA (07:56)
[2024-12-03] MEDS: CEFDINIR 300 MG CAP PO STA (07:59)
[2024-12-03] MEDS: CIPROFLOXACIN-DEXAMETH 0.3-0.1% DROPS 7.5 ML BTL LEFT EAR STA (08:00)
[2024-12-03 08:17] VITALS: BP 115/76; PULSE 111; RESP 16; TEMP 97.7
== END 2024-12-03 08:13 | disposition home or self-care (01) ==
LOC: EC 06:44
DX: H66.92 Otitis media, unspecified, left ear (principal); Z88.0 Allergy status to penicillin; Z91.041 Radiographic dye allergy status; Z91.040 Latex allergy status; Z91.013 Allergy to seafood
CPT/HCPCS: 99283